=== PATIENT | male | born 1960 | race Caucasian/White ===

== ENCOUNTER 2017-07-30 09:56 | Emergency (ER) | payer BC ==
[2017-07-30] MEDS ORDERED: Ciprofloxacin 0.3% Ophth Soln 2.5 ML Bottle ONE (10:15)
--- NOTE | 2017-07-30 10:33 | EDM.PDOC ---
ED HPI GENERAL MEDICAL PROBLEM - General Chief Complaint: General Stated Complaint: LEFT EYE REDNESS/CONTUSION Time Seen by Provider: 07/30/17 10:15 Source of Information: Reports: Patient History Limitations: Reports: No Limitations - History of Present Illness INITIAL COMMENTS - FREE TEXT/NARRATIVE: According to patient he claims that he has been having pain and irritation in his left eye since monday07/25/17. He claims he was working outdoor and something fell into his left eye and he rubbed the left eye. Since then he has been feeling irritation as if there is something in the eye. HE has continued to rub and his eye now has turned red. He claims he tears and his left eyelids shut when is outdoor in bright sun. No halo around the lights, no headache, no blurry vision. no eye discharge. No fever or chills. Onset Date: 07/25/17 Duration: Day(s): (6) Location: Reports: Other (left eye) Quality: Reports: Ache Severity: Mild Improves with: Reports: None Worsens with: Reports: None Associated Symptoms: Denies: Confusion, Fever/Chills, Headaches, Nausea/Vomiting , Rash ED ROS GENERAL - Review of Systems Review Of Systems: See Below Constitutional: Denies: Fever, Chills HEENT: Reports: Eye Pain. Denies: Eye Discharge, Rhinitis, Throat Pain, Vision Change Respiratory: Denies: Cough, Sputum Cardiovascular: Denies: Chest Pain, Lightheadedness GI/Abdominal: Denies: Nausea, Vomiting Skin: Denies: Bruising, Pruritis, Rash ED EXAM, GENERAL - Physical Exam Exam: See Below Exam Limited By: No Limitations General Appearance: Alert, WD/WN, No Apparent Distress Eye Exam: Left Eye: Conjunctival Injection, Other (On fluroscein exam: there is increased intake of the sye over the conjuntiva just lateral to the lateral corneal margin. 2mmby 1mm traingular area, with severe congestion around it. there is extension of the lesion into circumcorneal junction.), Bilateral Eye: EOMI, PERRL Course - Vital Signs Text/Narrative:: Pt reassured that he has a small conjunctival tear very close to the circumcorneal junction of the left eye, which explains his photophobia and tearing. His corneal appears normal. I have advised patient no to rub the eye. Use dark glasses when out door. I have [id number] him on Cirpo eye drop 2 drops every 4 hrs in left eye.Should improve in 1-2 days. If not better followup in clinic. Departure - Departure Time of Disposition: 10:30 Disposition: Home, Self-Care 01 Condition: Fair Clinical Impression: Conjunctival laceration - Discharge Information Referrals: PCP,None [Primary Care Provider] - - Problem List & Annotations (1) Conjunctival laceration SNOMED Code(s): 465723802 Code(s): S05.30XA - OCLR LAC W/O PROLAPS/LOSS OF INTRAOC TISSUE, UNSP EYE, INIT Status: Acute Current Visit: Yes - Problem List Review Problem List Initiated/Reviewed/Updated: Yes - Assessment/Plan Assessment:: Left eye conjunctival tear superficial Plan: Pt reassured that he has a small conjunctival tear very close to the circumcorneal junction of the left eye, which explains his photophobia and tearing. His corneal appears normal. I have advised patient no to rub the eye. Use dark glasses when out door. I have [id number] him on Cirpo eye drop 2 drops every 4 hrs in left eye.Should improve in 1-2 days. If not better followup in clinic.
== END 2017-07-30 10:20 | disposition home or self-care (01) ==
LOC: LB.ED 09:56
DX: S05.32XA Ocular laceration without prolapse or loss of intraocular tissue, left eye, initial encounter (principal); X58.XXXA Exposure to other specified factors, initial encounter
CPT/HCPCS: 99283; A9270